=== PATIENT | male | born 1955 | race Caucasian/White ===

== ENCOUNTER 2024-01-11 07:53 | Emergency (ER) | payer MEDICARE, OTHER ==
[~2024-01-11] VITALS: Ht 175.3 cm; Wt 86.2 kg
[2024-01-11] MEDS ORDERED: TDAP [DIPH/PERTUSSIS/TET] 0.5 ML VIAL IM ONE (08:27)
[2024-01-11] MEDS ORDERED: LIDOCAINE 1%-EPI 1:100,000 20 ML VIAL ONE (08:27)
[2024-01-11] MEDS: LIDOCAINE 1%-EPI 1:100,000 20 ML VIAL TP ONE (08:29)
[2024-01-11] MEDS: TDAP [DIPH/PERTUSSIS/TET] 0.5 ML VIAL IM ONE (08:42)
[2024-01-11 11:38] VITALS: BP 128/85; TEMP 98.2; O2SAT 100
== END 2024-01-11 11:38 | disposition home health service (06) ==
LOC: ER 08:07
DX: S01.81XA Laceration without foreign body of other part of head, initial encounter (principal); I10 Essential (primary) hypertension; W06.XXXA Fall from bed, initial encounter; Y93.89 Activity, other specified; Y92.89 Other specified places as the place of occurrence of the external cause; Y99.8 Other external cause status
CPT/HCPCS: 99285; 70450; 12013; 90471; 90715; A6403; J3490